=== PATIENT | male | born 1980 | race African-American/Black ===

== ENCOUNTER 2017-06-02 13:52 | Day surgery (SDC) | payer OTHER | END 2017-06-02 18:11 | disposition home or self-care (01) | LOC: GIL 13:52 | DX: K80.51 Calculus of bile duct without cholangitis or cholecystitis with obstruction (principal); Z53.9 Procedure and treatment not carried out, unspecified reason; E66.9 Obesity, unspecified; Z68.33 Body mass index [BMI] 33.0-33.9, adult ==

== ENCOUNTER 2017-09-01 16:53 | Inpatient (IN) | payer OTHER ==
[2017-09-01] MEDS ORDERED: ACETAMINOPHEN 500 MG TAB (18:00)
[2017-09-01] MEDS: HYDROmorphONE 0.5 MG/0.5 ML SYG IV (18:10)
[2017-09-01] MEDS: SOD CHLORIDE 0.9% 1,000 ML IV ×3 (18:10→23:56)
[2017-09-01] MEDS: ONDANSETRON 4 MG INJ IV (18:10)
[2017-09-01 18:22] LABS: ABNORMAL IP MESSAGE 1; HEMOGLOBIN 14.4 g/dl (14.0-18.0); MEAN CORPUSCULAR HEMOGLOBIN 29.6 pg (29.0-33.0); MEAN CORPUSCULAR VOLUME 82.1 fl (82.0-101.0); MEAN PLATELET VOLUME 9.2 fl (7.4-10.4); NUCLEATED RED BLOOD CELLS% 0.1 /100WBC (0.0-0.0); PLATELET COUNT 223 10^3/UL (140-415); POSITIVE DIFF @See below; RED BLOOD COUNT 4.87 10^6/ul (4.70-6.10); RED CELL DISTRIBUTION WIDTH 18.6 % (11.5-14.5)
[2017-09-01 18:22] LABS: WHITE BLOOD COUNT 30.8 10^3/ul (4.8-10.8)
[2017-09-01 18:25] LABS: ADD MAN DIFF? YES
[2017-09-01 18:26] LABS: PATH REVIEW? YES
[2017-09-01 18:42] LABS: ALANINE AMINOTRANSFERASE 185 IU/L (13-69); ALBUMIN 3.4 g/dl (3.3-4.9); ALBUMIN/GLOBULIN RATIO 1.17; ALKALINE PHOSPHATASE 153 IU/L (42-121); ANION GAP 12 (8-16); ASPARTATE AMINO TRANSFERASE 254 IU/L (15-46); BILIRUBIN,INDIRECT 5.7 mg/dl (0-1.1); BILIRUBIN,TOTAL 12.8 mg/dl (0.2-1.3); BLOOD UREA NITROGEN 9 mg/dl (7-20); CALCIUM 8.6 mg/dl (8.4-10.2); CARBON DIOXIDE 27 mmol/L (21-31); CHLORIDE 101 mmol/L (97-110); CREATININE 1.12 mg/dl (0.61-1.24); GLUCOSE 98 mg/dl (70-220); LIPASE 90 U/L (23-300); POTASSIUM 3.4 mmol/L (3.5-5.1); SODIUM 137 mmol/L (135-144); TOTAL PROTEIN 6.3 g/dl (6.1-8.1)
[2017-09-01] MEDS: IBUPROFEN 800 MG TAB PO (18:54)
[2017-09-01] MEDS: SODIUM CHLORIDE 0.9% 1L BAG IV* (18:57)
[2017-09-01] MEDS: ERTAPENEM SODIUM 1 GM in SOD CHLORIDE 0.9% 100 ML IVPB (19:44)
[2017-09-01 19:56] LABS: ANISOCYTOSIS 2+ (0-0); BAND NEUTROPHILS #M 2.4 10^3/ul (0.0-0.6); BAND NEUTROPHILS % (M) 8 % (0-4); LYMPHOCYTES #M 0.9 10^3/ul (0.8-2.9); LYMPHOCYTES % (M) 3 % (15-51); MICROCYTOSIS 2+ (0-0); MONOCYTE #M 1.2 10^3/ul (0.3-0.9); MONOCYTES % (M) 4 % (0-11); PLATELET MORPHOLOGY COMMENT @See below; POIKILOCYTOSIS 1+ (0-0); POLYCHROMASIA 2+ (0-0); SEG NEUT #M 26.9 10^3/ul (1.6-7.5); SEGMENTED NEUTROPHILS (M) % 85 % (39-77); SMUDGE%M 2 % (0-0)
[2017-09-01] MEDS ORDERED: ACETAMINOPHEN 325 MG TAB PO ×2 (20:00→21:00)
[2017-09-01] MEDS ORDERED: ONDANSETRON 4 MG INJ IV ×2 (20:00→21:00)
[2017-09-01 20:25] LABS: LACTIC ACID 2.3 mmol/L (0.5-2.0)
[2017-09-01] MEDS ORDERED: HYDROmorphONE 0.5 MG/0.5 ML SYG IV (21:00)
[2017-09-01] MEDS ORDERED: NACL 0.9% 3 ML SYG IV (21:00)
[2017-09-02 01:04] LABS: LACTIC ACID 2.8 mmol/L (0.5-2.0)
[2017-09-02] MEDS: SOD CHLORIDE 0.9% 1,000 ML IV ×3 (01:06→16:06)
[2017-09-02] MEDS: PIPER-TAZO 3.375 GM IV (PMX) 100 ML IVPB ×4 (01:06→18:00)
[2017-09-02 05:58] LABS: WHITE BLOOD COUNT 39.9 10^3/ul (4.8-10.8)
[2017-09-02 05:58] LABS: ABNORMAL IP MESSAGE 1; HEMATOCRIT 37.6 % (42.0-52.0); HEMOGLOBIN 13.2 g/dl (14.0-18.0); MEAN CORPUSCULAR HEMOGLOBIN 29.5 pg (29.0-33.0); MEAN CORPUSCULAR HGB CONC 35.1 g/dl (32.0-37.0); MEAN CORPUSCULAR VOLUME 83.9 fl (82.0-101.0); MEAN PLATELET VOLUME 9.1 fl (7.4-10.4); NUCLEATED RED BLOOD CELLS% 0.1 /100WBC (0.0-0.0); PLATELET COUNT 197 10^3/UL (140-415); POSITIVE DIFF @See below; RED BLOOD COUNT 4.48 10^6/ul (4.70-6.10); RED CELL DISTRIBUTION WIDTH 19.1 % (11.5-14.5)
[2017-09-02 06:16] LABS: ADD MAN DIFF? YES
[2017-09-02 06:24] LABS: ALANINE AMINOTRANSFERASE 161 IU/L (13-69); ALBUMIN 2.8 g/dl (3.3-4.9); ALBUMIN/GLOBULIN RATIO 1.03; ALKALINE PHOSPHATASE 138 IU/L (42-121); ANION GAP 14 (8-16); ASPARTATE AMINO TRANSFERASE 152 IU/L (15-46); BILIRUBIN,TOTAL 18.1 mg/dl (0.2-1.3); BLOOD UREA NITROGEN 10 mg/dl (7-20); CALCIUM 7.6 mg/dl (8.4-10.2); CARBON DIOXIDE 26 mmol/L (21-31); CHLORIDE 105 mmol/L (97-110); CHOL/HDL RATIO 2.4 RATIO; CHOLESTEROL 71 mg/dl (100-200); CREATININE 1.08 mg/dl (0.61-1.24); GLUCOSE 96 mg/dl (70-220); HDL CHOLESTEROL 29 mg/dl (28-63); LDL CHOLESTEROL,CALCULATED 28 mg/dl; MAGNESIUM 1.4 mg/dl (1.7-2.5); SODIUM 141 mmol/L (135-144); TOTAL PROTEIN 5.5 g/dl (6.1-8.1); TRIGLYCERIDES 69 mg/dl (0-149)
[2017-09-02] MEDS ORDERED: ONDANSETRON 4 MG INJ IV (06:30)
[2017-09-02] MEDS ORDERED: METOCLOPRAMIDE 10 MG INJ IV (06:30)
[2017-09-02] MEDS ORDERED: NACL 0.9% 3 ML SYG IV (06:30)
[2017-09-02] MEDS ORDERED: ACETAMINOPHEN 325 MG TAB PO (06:30)
[2017-09-02] MEDS: SOD CHLORIDE 0.9% 500 ML IV (06:43)
[2017-09-02] MEDS ORDERED: SUCCINYLCHOLINE CHLORIDE 100 MG/5 ML SYG IV (07:00)
[2017-09-02 07:40] LABS: ANISOCYTOSIS 3+ (0-0); BAND NEUTROPHILS #M 5.9 10^3/ul (0.0-0.6); BAND NEUTROPHILS % (M) 15 % (0-4); BURR CELLS 1+ (0-0); LYMPHOCYTES #M 1.9 10^3/ul (0.8-2.9); LYMPHOCYTES % (M) 5 % (15-51); MICROCYTOSIS 3+ (0-0); MONOCYTE #M 1.1 10^3/ul (0.3-0.9); MONOCYTES % (M) 3 % (0-11); PLATELET ESTIMATE NORMAL; POIKILOCYTOSIS 2+ (0-0); POLYCHROMASIA 3+ (0-0); SEG NEUT #M 33.1 10^3/ul (1.6-7.5); SEGMENTED NEUTROPHILS (M) % 77 % (39-77)
[2017-09-02] MEDS: INDOMETHACIN 50 MG SUPP PR ×2 (09:00→18:30)
[2017-09-02] MEDS ORDERED: VANCOMYCIN IV PER PHARMACY XX (13:00)
[2017-09-02] MEDS: VANCOMYCIN 2 GM in SOD CHLORIDE 0.9% 500 ML IVPB (13:57)
[2017-09-02] MEDS: PANTOPRAZOLE 40 MG INJ IV (14:49)
[2017-09-02] MEDS ORDERED: PROPOFOL 20 ML (18:42)
[2017-09-02] MEDS ORDERED: DEXAMETHASONE 4 MG/ML 1 ML INJ (18:42)
[2017-09-02] MEDS ORDERED: GLYCOPYRROLATE 0.4 MG INJ (18:42)
[2017-09-02] MEDS ORDERED: ONDANSETRON 4 MG INJ (18:42)
[2017-09-02] MEDS ORDERED: FENTAnyl 50 MCG/ML VIAL (18:42)
[2017-09-02] MEDS ORDERED: NEOSTIGMINE 3 MG/3 ML SYRINGE (18:42)
[2017-09-02] MEDS ORDERED: MIDAZOLAM 1 MG/ML 2 ML INJ (18:42)
[2017-09-02] MEDS ORDERED: CEFAZOLIN 1 GM INJ (18:42)
[2017-09-02] MEDS ORDERED: ROCURONIUM 50 MG INJ (18:42)
[2017-09-02] MEDS ORDERED: SUGAMMADEX SODIUM 200 MG/2 ML VIAL IV ×2 (19:47→19:49)
[2017-09-02] MEDS: VANCOMYCIN 1.25 GM in SOD CHLORIDE 0.9% 250 ML IVPB (23:39)
[2017-09-03] MEDS: PIPER-TAZO 3.375 GM IV (PMX) 100 ML IVPB ×4 (01:51→17:49)
[2017-09-03] MEDS: SOD CHLORIDE 0.9% 1,000 ML IV ×3 (02:31→22:31)
[2017-09-03] MEDS: PANTOPRAZOLE 40 MG INJ IV (06:00)
[2017-09-03] MEDS: VANCOMYCIN 1.25 GM in SOD CHLORIDE 0.9% 250 ML IVPB (06:00)
[2017-09-03 14:12] LABS: ABNORMAL IP MESSAGE 1; HEMATOCRIT 36.4 % (42.0-52.0); HEMOGLOBIN 12.7 g/dl (14.0-18.0); MEAN CORPUSCULAR HEMOGLOBIN 29.2 pg (29.0-33.0); MEAN CORPUSCULAR HGB CONC 34.9 g/dl (32.0-37.0); MEAN CORPUSCULAR VOLUME 83.7 fl (82.0-101.0); MEAN PLATELET VOLUME 9.4 fl (7.4-10.4); PLATELET COUNT 224 10^3/UL (140-415); POSITIVE DIFF @See below; RED BLOOD COUNT 4.35 10^6/ul (4.70-6.10); RED CELL DISTRIBUTION WIDTH 18.9 % (11.5-14.5)
[2017-09-03 14:12] LABS: WHITE BLOOD COUNT 25.9 10^3/ul (4.8-10.8)
[2017-09-03 14:21] LABS: ADD MAN DIFF? YES
[2017-09-03 14:34] LABS: ALANINE AMINOTRANSFERASE 91 IU/L (13-69); ALBUMIN 2.6 g/dl (3.3-4.9); ALBUMIN/GLOBULIN RATIO 0.83; ALKALINE PHOSPHATASE 119 IU/L (42-121); ANION GAP 14 (8-16); ASPARTATE AMINO TRANSFERASE 57 IU/L (15-46); BILIRUBIN,INDIRECT 1.8 mg/dl (0-1.1); BILIRUBIN,TOTAL 2.2 mg/dl (0.2-1.3); BLOOD UREA NITROGEN 12 mg/dl (7-20); CALCIUM 8.1 mg/dl (8.4-10.2); CARBON DIOXIDE 27 mmol/L (21-31); CHLORIDE 105 mmol/L (97-110); CREATININE 1.09 mg/dl (0.61-1.24); GLUCOSE 103 mg/dl (70-220); POTASSIUM 3.7 mmol/L (3.5-5.1); SODIUM 142 mmol/L (135-144); TOTAL PROTEIN 5.7 g/dl (6.1-8.1)
[2017-09-03 14:42] LABS: VANCOMYCIN,TROUGH 5.9 ug/ml (10.0-20.0)
[2017-09-03 15:25] LABS: ANISOCYTOSIS 2+ (0-0); GIANT THROMBO% (M) 1 % (0-0); LYMPHOCYTES #M 1.8 10^3/ul (0.8-2.9); LYMPHOCYTES % (M) 7 % (15-51); MICROCYTOSIS 2+ (0-0); MONOCYTE #M 0.7 10^3/ul (0.3-0.9); MONOCYTES % (M) 3 % (0-11); PLATELET ESTIMATE NORMAL; POIKILOCYTOSIS 1+ (0-0); POLYCHROMASIA 1+ (0-0); SEGMENTED NEUTROPHILS (M) % 90 % (39-77)
[2017-09-04] MEDS: PIPER-TAZO 3.375 GM IV (PMX) 100 ML IVPB ×5 (00:08→23:37)
[2017-09-04] MEDS: PANTOPRAZOLE 40 MG INJ IV (05:39)
[2017-09-04 06:17] LABS: ADD MAN DIFF? NO
[2017-09-04 06:24] LABS: BASOPHILS % 0.2 % (0.0-2.0); EOSINOPHILS # 0.1 10^3/ul (0.0-0.5); EOSINOPHILS % 0.4 % (0.0-7.0); HEMATOCRIT 35.2 % (42.0-52.0); HEMOGLOBIN 12.3 g/dl (14.0-18.0); LYMPHOCYTES # 2.2 10^3/ul (0.8-2.9); LYMPHOCYTES % 11.7 % (15.0-51.0); MEAN CORPUSCULAR HEMOGLOBIN 29.6 pg (29.0-33.0); MEAN CORPUSCULAR HGB CONC 34.9 g/dl (32.0-37.0); MEAN CORPUSCULAR VOLUME 84.8 fl (82.0-101.0); MEAN PLATELET VOLUME 9.4 fl (7.4-10.4); MONOCYTE # 0.7 10^3/ul (0.3-0.9); MONOCYTES % 3.8 % (0.0-11.0); NEUTROPHIL # 15.8 10^3/ul (1.6-7.5); NEUTROPHILS % 83.2 % (39.0-77.0); PLATELET COUNT 207 10^3/UL (140-415); RED BLOOD COUNT 4.15 10^6/ul (4.70-6.10); RED CELL DISTRIBUTION WIDTH 18.9 % (11.5-14.5)
[2017-09-04 06:58] LABS: ALANINE AMINOTRANSFERASE 78 IU/L (13-69); ALBUMIN 2.8 g/dl (3.3-4.9); ALBUMIN/GLOBULIN RATIO 1.03; ALKALINE PHOSPHATASE 119 IU/L (42-121); ANION GAP 8 (8-16); ASPARTATE AMINO TRANSFERASE 37 IU/L (15-46); BILIRUBIN,INDIRECT 1.6 mg/dl (0-1.1); BILIRUBIN,TOTAL 1.6 mg/dl (0.2-1.3); BLOOD UREA NITROGEN 8 mg/dl (7-20); CALCIUM 8.1 mg/dl (8.4-10.2); CARBON DIOXIDE 29 mmol/L (21-31); CHLORIDE 106 mmol/L (97-110); CREATININE 1.05 mg/dl (0.61-1.24); GLUCOSE 83 mg/dl (70-220); POTASSIUM 3.4 mmol/L (3.5-5.1); SODIUM 140 mmol/L (135-144); TOTAL PROTEIN 5.5 g/dl (6.1-8.1)
[2017-09-04] MEDS: SOD CHLORIDE 0.9% 1,000 ML IV ×3 (09:07→23:37)
[2017-09-04 12:12] LABS: HEPATITIS B SURFACE ANTIGEN NEGATIVE (NEGATIVE)
[2017-09-04 12:29] LABS: HEPATITIS C VIRAL ANTIBODY NEGATIVE (NEGATIVE)
[2017-09-04 12:31] LABS: HEPATITIS B SURFACE ANTIBODY POSITIVE (NEGATIVE)
[2017-09-05] MEDS: PIPER-TAZO 3.375 GM IV (PMX) 100 ML IVPB ×3 (05:35→18:34)
[2017-09-05] MEDS: PANTOPRAZOLE 40 MG INJ IV (05:36)
[2017-09-05 06:07] LABS: ADD MAN DIFF? NO
[2017-09-05 06:23] LABS: BASOPHIL # 0.1 10^3/ul (0.0-0.1); BASOPHILS % 0.5 % (0.0-2.0); EOSINOPHILS # 0.2 10^3/ul (0.0-0.5); EOSINOPHILS % 1.6 % (0.0-7.0); HEMATOCRIT 36.2 % (42.0-52.0); HEMOGLOBIN 12.5 g/dl (14.0-18.0); LYMPHOCYTES # 2.6 10^3/ul (0.8-2.9); LYMPHOCYTES % 21.9 % (15.0-51.0); MEAN CORPUSCULAR HEMOGLOBIN 29.1 pg (29.0-33.0); MEAN CORPUSCULAR HGB CONC 34.5 g/dl (32.0-37.0); MEAN CORPUSCULAR VOLUME 84.2 fl (82.0-101.0); MEAN PLATELET VOLUME 9.1 fl (7.4-10.4); MONOCYTE # 0.7 10^3/ul (0.3-0.9); MONOCYTES % 5.9 % (0.0-11.0); NEUTROPHIL # 8.3 10^3/ul (1.6-7.5); NEUTROPHILS % 69.3 % (39.0-77.0); NUCLEATED RED BLOOD CELLS% 0.2 /100WBC (0.0-0.0); PLATELET COUNT 223 10^3/UL (140-415); RED CELL DISTRIBUTION WIDTH 18.6 % (11.5-14.5)
[2017-09-05 06:32] LABS: INR 0.99; PROTIME 13.2 Sec (11.9-14.9)
[2017-09-05 06:53] LABS: ALANINE AMINOTRANSFERASE 56 IU/L (13-69); ALBUMIN 2.8 g/dl (3.3-4.9); ALBUMIN/GLOBULIN RATIO 0.84; ALKALINE PHOSPHATASE 116 IU/L (42-121); ANION GAP 11 (8-16); ASPARTATE AMINO TRANSFERASE 29 IU/L (15-46); BILIRUBIN,INDIRECT 1.9 mg/dl (0-1.1); BILIRUBIN,TOTAL 1.9 mg/dl (0.2-1.3); BLOOD UREA NITROGEN 5 mg/dl (7-20); CALCIUM 8.4 mg/dl (8.4-10.2); CARBON DIOXIDE 31 mmol/L (21-31); CHLORIDE 102 mmol/L (97-110); CREATININE 1.23 mg/dl (0.61-1.24); GLUCOSE 85 mg/dl (70-220); POTASSIUM 3.3 mmol/L (3.5-5.1); SODIUM 141 mmol/L (135-144); TOTAL PROTEIN 6.1 g/dl (6.1-8.1)
[2017-09-06] MEDS: PIPER-TAZO 3.375 GM IV (PMX) 100 ML IVPB ×2 (00:37→05:12)
[2017-09-06] MEDS: SOD CHLORIDE 0.9% 1,000 ML IV ×3 (00:38→16:14)
[2017-09-06] MEDS: PANTOPRAZOLE 40 MG INJ IV (05:12)
[2017-09-06 06:36] LABS: ADD MAN DIFF? NO
[2017-09-06 06:42] LABS: BASOPHIL # 0.1 10^3/ul (0.0-0.1); BASOPHILS % 0.9 % (0.0-2.0); EOSINOPHILS # 0.3 10^3/ul (0.0-0.5); EOSINOPHILS % 3.2 % (0.0-7.0); HEMATOCRIT 38.8 % (42.0-52.0); HEMOGLOBIN 13.1 g/dl (14.0-18.0); LYMPHOCYTES # 2.7 10^3/ul (0.8-2.9); LYMPHOCYTES % 28.8 % (15.0-51.0); MEAN CORPUSCULAR HEMOGLOBIN 28.6 pg (29.0-33.0); MEAN CORPUSCULAR HGB CONC 33.8 g/dl (32.0-37.0); MEAN CORPUSCULAR VOLUME 84.7 fl (82.0-101.0); MEAN PLATELET VOLUME 8.9 fl (7.4-10.4); MONOCYTE # 0.7 10^3/ul (0.3-0.9); MONOCYTES % 7.1 % (0.0-11.0); NEUTROPHIL # 5.4 10^3/ul (1.6-7.5); NEUTROPHILS % 57.9 % (39.0-77.0); NUCLEATED RED BLOOD CELLS% 0.3 /100WBC (0.0-0.0); PLATELET COUNT 228 10^3/UL (140-415); RED BLOOD COUNT 4.58 10^6/ul (4.70-6.10); RED CELL DISTRIBUTION WIDTH 17.8 % (11.5-14.5)
[2017-09-06 06:42] LABS: WHITE BLOOD COUNT 9.2 10^3/ul (4.8-10.8)
[2017-09-06] MEDS ORDERED: BUPIVACAINE 0.25% (STERILE-PAK) 30 ML INJ (07:00)
[2017-09-06 07:05] LABS: ALANINE AMINOTRANSFERASE 59 IU/L (13-69); ALBUMIN 3.3 g/dl (3.3-4.9); ALBUMIN/GLOBULIN RATIO 1.06; ALKALINE PHOSPHATASE 105 IU/L (42-121); ANION GAP 11 (8-16); ASPARTATE AMINO TRANSFERASE 36 IU/L (15-46); BILIRUBIN,INDIRECT 1.7 mg/dl (0-1.1); BILIRUBIN,TOTAL 1.7 mg/dl (0.2-1.3); BLOOD UREA NITROGEN 4 mg/dl (7-20); CALCIUM 8.7 mg/dl (8.4-10.2); CARBON DIOXIDE 32 mmol/L (21-31); CHLORIDE 102 mmol/L (97-110); CREATININE 1.17 mg/dl (0.61-1.24); GLUCOSE 87 mg/dl (70-220); POTASSIUM 3.3 mmol/L (3.5-5.1); SODIUM 142 mmol/L (135-144); TOTAL PROTEIN 6.4 g/dl (6.1-8.1)
[2017-09-06] MEDS ORDERED: HYDROmorphONE (0.2 MG/ML) 10ML SYG IV (11:49)
[2017-09-06] MEDS ORDERED: ONDANSETRON 4 MG INJ IV ×2 (12:00)
[2017-09-06] MEDS ORDERED: KETOROLAC 30 MG INJ IV (12:00)
[2017-09-06] MEDS ORDERED: OXYCODONE/ACETAMINOPHEN (5/325) TAB PO (12:00)
[2017-09-06] MEDS ORDERED: DIPHENHYDRAMINE 50 MG INJ IV (12:00)
[2017-09-06] MEDS ORDERED: morphine 2 MG INJ IV (12:00)
[2017-09-06] MEDS ORDERED: MEPERIDINE 25 MG INJ IV (12:00)
[2017-09-06] MEDS ORDERED: FENTAnyl 50 MCG/ML VIAL IV ×2 (12:00)
[2017-09-06] MEDS ORDERED: METOCLOPRAMIDE 10 MG INJ IV (12:00)
[2017-09-06] MEDS ORDERED: LORAZEPAM 2 MG INJ IV (12:00)
[2017-09-06] MEDS: HYDROmorphONE (0.2 MG/ML) 10ML SYG IV ×2 (12:03→12:04)
[2017-09-06] MEDS: BUPIVACAINE 0.25% (MPF) 30 ML INJ (12:06)
[2017-09-06 12:57] LABS: MAGNESIUM 1.7 mg/dl (1.7-2.5)
[2017-09-06] MEDS: POTASSIUM CHLORIDE (SR) 20 MEQ TAB PO (13:55)
[2017-09-06] MEDS: CEFAZOLIN 1 GM/50 ML (PMX) 50 ML IVPB ×2 (13:55→21:37)
[2017-09-06] MEDS: OXYCODONE/ACETAMINOPHEN (5/325) TAB PO (20:22)
[2017-09-07] MEDS: SOD CHLORIDE 0.9% 1,000 ML IV ×2 (04:24→16:00)
[2017-09-07] MEDS: OXYCODONE/ACETAMINOPHEN (5/325) TAB PO ×2 (04:25→17:17)
[2017-09-07] MEDS: CEFAZOLIN 1 GM/50 ML (PMX) 50 ML IVPB ×2 (06:01→15:26)
[2017-09-07] MEDS: PANTOPRAZOLE 40 MG INJ IV (06:01)
[2017-09-07 06:29] LABS: ADD MAN DIFF? NO
[2017-09-07 06:44] LABS: BASOPHIL # 0.1 10^3/ul (0.0-0.1); BASOPHILS % 0.5 % (0.0-2.0); EOSINOPHILS # 0.2 10^3/ul (0.0-0.5); EOSINOPHILS % 1.3 % (0.0-7.0); HEMATOCRIT 36.5 % (42.0-52.0); HEMOGLOBIN 12.8 g/dl (14.0-18.0); LYMPHOCYTES # 2.7 10^3/ul (0.8-2.9); LYMPHOCYTES % 20.5 % (15.0-51.0); MEAN CORPUSCULAR HEMOGLOBIN 29.1 pg (29.0-33.0); MEAN CORPUSCULAR HGB CONC 35.1 g/dl (32.0-37.0); MONOCYTE # 0.9 10^3/ul (0.3-0.9); MONOCYTES % 6.8 % (0.0-11.0); NEUTROPHILS % 69.2 % (39.0-77.0); NUCLEATED RED BLOOD CELLS% 0.2 /100WBC (0.0-0.0); PLATELET COUNT 247 10^3/UL (140-415); RED CELL DISTRIBUTION WIDTH 18.1 % (11.5-14.5)
[2017-09-07 06:57] LABS: ALANINE AMINOTRANSFERASE 65 IU/L (13-69); ALBUMIN 3.2 g/dl (3.3-4.9); ALBUMIN/GLOBULIN RATIO 1.03; ALKALINE PHOSPHATASE 97 IU/L (42-121); ANION GAP 10 (8-16); ASPARTATE AMINO TRANSFERASE 49 IU/L (15-46); BILIRUBIN,INDIRECT 1.4 mg/dl (0-1.1); BILIRUBIN,TOTAL 1.4 mg/dl (0.2-1.3); BLOOD UREA NITROGEN 3 mg/dl (7-20); CALCIUM 8.6 mg/dl (8.4-10.2); CARBON DIOXIDE 30 mmol/L (21-31); CHLORIDE 103 mmol/L (97-110); CREATININE 0.99 mg/dl (0.61-1.24); GLUCOSE 108 mg/dl (70-220); POTASSIUM 3.4 mmol/L (3.5-5.1); SODIUM 140 mmol/L (135-144); TOTAL PROTEIN 6.3 g/dl (6.1-8.1)
[2017-09-07] MEDS: POTASSIUM CHLORIDE (SR) 20 MEQ TAB PO (10:01)
[2017-09-07] MEDS: MAGNESIUM SULFATE 1 GM/D5W 100 ML IVPB (10:49)
[2017-09-07] MEDS: LEVOFLOXACIN 500MG/D5W (PMX) 100 ML IVPB (16:31)
== END 2017-09-07 18:57 | disposition home or self-care (01) | DRG 907 ==
LOC: E/R 16:53 → MS4 09-02 21:26 → PP2 09-05 17:50 → MS3 19:50
PROC: 0FC98ZZ Extirpation of Matter from Common Bile Duct, Via Natural or Artificial Opening Endoscopic (ICD-10-PCS; 2017-09-02 17:30)
PROC: 0FPB8DZ Removal of Intraluminal Device from Hepatobiliary Duct, Via Natural or Artificial Opening Endoscopic (ICD-10-PCS; 2017-09-02 17:30)
PROC: 0F798DZ Dilation of Common Bile Duct with Intraluminal Device, Via Natural or Artificial Opening Endoscopic (ICD-10-PCS; 2017-09-02 17:30)
PROC: 0FT44ZZ Resection of Gallbladder, Percutaneous Endoscopic Approach (ICD-10-PCS; principal; 2017-09-02 18:40)
PROC: 07BC4ZX Excision of Pelvis Lymphatic, Percutaneous Endoscopic Approach, Diagnostic (ICD-10-PCS; 2017-09-02 18:40)
DX: T85.79XA Infection and inflammatory reaction due to other internal prosthetic devices, implants and grafts, initial encounter (principal); A41.59 Other Gram-negative sepsis; K80.66 Calculus of gallbladder and bile duct with acute and chronic cholecystitis without obstruction; K83.0 Cholangitis; F12.90 Cannabis use, unspecified, uncomplicated; E66.9 Obesity, unspecified; Z68.31 Body mass index [BMI] 31.0-31.9, adult; Z87.891 Personal history of nicotine dependence
CPT/HCPCS: 36415; 71045; 74018; 74330; 76705; 80053; 80061; 80202; 83036; 83605; 83690; 83735; 84443; 85025; 85610; 85730; 86706; 86803; 87040; 87340; 88304; 88307; 96374; 96375; 99285-25